=== PATIENT | male | born 1945 | race Two or more races ===

== ENCOUNTER 2023-10-27 08:54 | Emergency (ER) | payer BC, OTHER ==
[~2023-10-27] VITALS: Ht 170.2 cm; Wt 90.9 kg
[2023-10-27 09:22] VITALS: PULSE 75; RESP 11; O2SAT 95
[2023-10-27] MEDS: ONDANSETRON HCL 4 MG/2 ML VIAL IV ONE ×2 (10:06→12:38)
[2023-10-27] MEDS: MORPHINE SULFATE 4 MG/ML SYR/VIAL IV ONE (10:07)
[2023-10-27 10:19] LABS: Basophils # (auto) 0 10 ^3/uL (0-0.2); Basophils % (auto) 0.1 % (0.0-2.0); Eosinophils # (auto) 0 10 ^3/uL (0-0.8); Eosinophils % (auto) 0.8 % (0.0-7.0); Hemoglobin 11.2 g/dL (13.5-17.5); Lymphocytes # (auto) 0.5 10 ^3/uL (0.4-5.4); Lymphocytes % (auto) 8.4 % (10.0-50.0); Mean Corpuscular Hemoglobin 25.8 pg (28.0-32.0); Mean Corpuscular Hgb Conc. 31.9 g/dL (32.0-36.0); Mean Corpuscular Volume 80.8 fL (80.0-100.0); Monocytes # (auto) 0.7 10 ^3/uL (0-1.3); Monocytes % (auto) 10.9 % (0.0-12.0); Neutrophils # (auto) 4.8 10 ^3/uL (1.6-8.6); Neutrophils % (auto) 79.8 % (37.0-80.0); Nucleated Red Blood Cells % 0.1 %; Red Blood Cells 4.33 10^6/uL (4.5-5.90); Red Cell Distribution Width 17.3 % (11.8-14.3)
[2023-10-27 10:23] LABS: Chloride 103 mmol/L (98-107); Potassium 3.3 mmol/L (3.5-5.1); Sodium 135 mmol/L (136-145)
[2023-10-27 10:24] LABS: Anion Gap 5 (5-15); Calcium 9.2 mg/dL (8.5-10.1); Carbon Dioxide 27 mmol/L (20-30)
[2023-10-27 10:29] LABS: BUN/Creatinine Ratio 15.4 (10.0-20.0); Blood Urea Nitrogen 14 mg/dL (9-23); Glucose 112 mg/dL (74-106)
[2023-10-27 10:29] LABS: Urine Bacteria None Seen /hpf (None Seen)
[2023-10-27 10:42] LABS: Urine Blood TRACE /uL (Negative); Urine Clarity Clear (Clear); Urine Color Light-Yellow (Yellow); Urine Mucus FEW (None Seen); Urine Protein, UAD Negative (Negative); Urine Specific Gravity 1.021 (1.001-1.035); Urine Urobilinogen Normal (Negative); Urine WBC 3 /hpf (0 - 3); Urine pH 5.5 (5.0-9.0)
[2023-10-27] MEDS ORDERED: HYDR1TAB97 PO (11:08)
[2023-10-27] MEDS ORDERED: OXY5T PO (11:08)
[2023-10-27] MEDS ORDERED: AMLO1TAB23 PO (11:08)
[2023-10-27] MEDS ORDERED: DEX4T PO (11:08)
[2023-10-27] MEDS ORDERED: DEXA4TAB PO (11:08)
[2023-10-27] MEDS ORDERED: GABA-1250 PO (11:08)
[2023-10-27] MEDS ORDERED: ACYC1TAB2 PO (11:08)
[2023-10-27] MEDS ORDERED: FUR20T PO (11:08)
[2023-10-27] MEDS ORDERED: SAXA1TAB PO (11:08)
[2023-10-27] MEDS ORDERED: ACETAMINOPHEN 325 MG TAB PO PRN (11:15)
[2023-10-27] MEDS ORDERED: DEXTROSE (50%) 50ML SYRG IV PRN (11:15)
[2023-10-27] MEDS ORDERED: MORPHINE SULFATE INJ 2 MG/ml SYRG IV PRN (11:15)
[2023-10-27] MEDS: ACCU-CHEK COMFORT CURVE STRIP VI SCH (11:30)
[2023-10-27] MEDS: InsuLIN REG 1unit/0.01ml Soln (100units/ml) SC SCH (11:30)
[2023-10-27 11:37] LABS: Magnesium 1.6 mg/dL (1.6-2.6)
[2023-10-27] MEDS: KETOROLAC TROMETH 30 MG/ML 1ML VIAL IV ONE (11:45)
[2023-10-27] MEDS: SODIUM CHLORIDE 0.9% 1,000 ML IV SCH (12:30)
[2023-10-27] MEDS: POTASSIUM EFFERVESENT TAB 25 MEQ PO ONE (12:31)
[2023-10-27] MEDS: diphenhdrAMINE HCL 50 MG/1 ML VL IV ONE (12:37)
[2023-10-27] MEDS: HYDROmorphone HCL 2 MG/ML VL/or syr IV ONE (12:39)
[2023-10-27 16:21] VITALS: BP 146/50; PULSE 66; RESP 17; TEMP 97.6; O2SAT 96
[2023-10-28] MEDS ORDERED: ENOXAPARIN SOD 40 MG/0.4 ML SYRINGE SC SCH (10:00)
== END 2023-10-27 16:54 | disposition home or self-care (01) ==
LOC: ER 08:54 → UNDOADMIN 11:17 → OVERFLOW 11:17 → ER 11:17
DX: M54.50 Low back pain, unspecified (principal); C90.00 Multiple myeloma not having achieved remission; R93.7 Abnormal findings on diagnostic imaging of other parts of musculoskeletal system; E11.9 Type 2 diabetes mellitus without complications; Z90.49 Acquired absence of other specified parts of digestive tract
CPT/HCPCS: 36415; 74176; 80048; 80061; 81001; 82962; 83036; 83735; 84443; 85025; 96361; 96374; 96375; 96376; 99285; J1170; J1200; J2270; J2405; J7030